=== PATIENT | male | born 1975 | race Caucasian/White ===

== ENCOUNTER → 2023-08-01 | Day surgery (SDC) | payer BC ==
[~2023-08-01] MED LIST: Ringers Lactate 1,000 ML IV ONE; propofoL 200 MG/20 ML VIAL IV ONE
[2023-08-01 11:19] LABS: Potassium 4.8 mEq/L (3.5-5.1)
== END ==
LOC: OR 09:22
PROVIDERS: ATTEND Surgery
PROC: 0DJD8ZZ Inspection of Lower Intestinal Tract, Via Natural or Artificial Opening Endoscopic (ICD-10-PCS; principal; 2023-08-01 13:00)
DX: Z12.11 Encounter for screening for malignant neoplasm of colon (principal); K64.8 Other hemorrhoids
CPT/HCPCS: 80048; 36415; 45378; J2704; J7120; 93005

== ENCOUNTER 2023-08-11 10:05 | Day surgery (SDC) | payer BC ==
--- NOTE | 2023-08-10 18:06 | EKG ---
Test Date: 2023-08-09 Test Time: 11:46:08 Hand Outside Cutter: LEAH MEASUREMENT RESULTS: Intervals: Rate: 84 WI: 148 QRSD: 84 QT: 368 QTc: 434 Marion: P: 40 WI: 148 QRS: 14 T: 18 INTERPRETIVE STATEMENTS: Normal sinus rhythm Possible Left atrial enlargement Borderline ECG No previous ECG available for comparison Electronically Signed On 08-10-23 18:03:36 CDT by Imtiaz Amezcua
[2023-08-11] MEDS ORDERED: CEFAZOLIN SODIUM 2 GM/VIAL ONE (10:58)
[2023-08-11] MEDS ORDERED: Ringers Lactate 1,000 ML IV ONE (10:58)
[2023-08-11] MEDS ORDERED: BUPIVACAINE 0.25% PF 30 ML VIAL ONE (13:01)
[2023-08-11] MEDS ORDERED: MIDAZOLAM HCL 2 MG/2 ML INJ ONE (13:22)
[2023-08-11] MEDS ORDERED: FENTANYL CITR 100 MCG/2 ML ONE (13:22)
[2023-08-11] MEDS ORDERED: propofoL 200 MG/20 ML VIAL IV ONE (13:31)
[2023-08-11] MEDS ORDERED: dexAMETHasone 10 MG/ML VIAL ONE (13:31)
[2023-08-11] MEDS ORDERED: ROCURONIUM 50 MG/5 ML VIAL IV ONE (13:31)
[2023-08-11] MEDS ORDERED: LIDOCAINE 2% MPF 5 ML VIAL ONE (13:34)
[2023-08-11] MEDS ORDERED: KETOROLAC 30 MG/ML INJ ONE (13:34)
[2023-08-11] MEDS ORDERED: ONDANSETRON 4 MG/2 ML VIAL ONE (13:34)
--- NOTE | 2023-08-11 14:34 | P.OP ---
Preoperative diagnosis: Umbilical Hernia Postoperative diagnosis: Umbilical Hernia Primary procedure: Laparoscopic Umbilical Hernia Repair with mesh Anesthesia: GETA + Local Estimated blood loss: <1cc Specimen: Hernia Contents - incarcerated adipose Findings: incarcerated adipose ~ 2cm umbilical hernia Complications: None Implants: 11.4cm Bard Ventralite ST Round Mesh, Sorbafix x 50 Transferred to: Recovery Room Condition: Good
[2023-08-11] MEDS: HYDROMORPHONE HCL 1 MG/ML INJ ONE ×2 (14:45→15:07)
[2023-08-11 15:36] VITALS: BP 153/100; TEMP 97; O2SAT 98
--- NOTE | 2023-08-11 22:46 | OP ---
Date of Procedure: 08/11/2023 Surgeon: Luis Cox MD, Preoperative Diagnosis: Umbilical hernia. Postoperative Diagnosis: Umbilical hernia. Procedure Performed: Laparoscopic umbilical hernia repair with mesh. Anesthesia: General endotracheal plus local with 0.25% Estimated Blood Loss: Less than 1 cc. Specimen: Hernia contents, which were incarcerated adipose tissue. Findings: Incarcerated adipose tissue and preperitoneal fat in an umbilical hernia. Approximately 2 cm hernia defect appreciated. Complications: None. Implants: 11.[address] mesh with Echo Positioning System, round mesh utilized, SorbaFix tacks, x50. Disposition: Patient was transferred to recovery room in good condition. Procedure In Detail: After informed consent was obtained, the patient was brought to the operating room, prepped and draped in the usual sterile fashion. After adequate anesthesia was achieved, an area of the left upper quadrant was anesthetized with 0.25% Marcaine, sharply incised. A 5 mm trocar was placed under direct vision without any evidence of complication. Insufflation was obtained to 15 mmHg. At this time, there was no injury to vital structure upon entry into the abdomen. Additional trocar was placed in the left mid abdomen. This was similarly anesthetized, sharply incised and a 12 mm trocar was placed under direct vision without evidence of complication. The LigaSure device was then used to remove preperitoneal fat and adipose tissue from the incarcerated umbilical hernia, which was approximately in 2 cm in size. After this was taken down using the LigaSure device, I swept back the peritoneal fat and hernia sac and ligated these structures and placing an EndoCatch bag, removed the umbilical trocar and sent off for pathologic examination. I continued to sweep adipose tissue back both proximally and distally from the hernia defect to allow for an appropriate landing zone. I then brought 0 V-Loc suture in an Endo Stitch and I sutured the hernia defect closed imbricating the hernia sac in a running fashion. At this point, I sized the mesh appropriately and final 11.4 cm Bard Ventralight mesh with echo positioning system appeared to be the most appropriate. I then centrally located it. After appropriately anesthetizing the skin in the supraumbilical position, I made a small stab incision and passed Elroy-Tova suture passer to deploy the mesh and it was secured to the anterior abdominal wall using SorbaFix fixation tacks. The balloon deployment system was then removed, found to be intact on the back table. Placed a total of 50 SorbaFix absorbable fixation tacks to the anterior abdominal wall with good apposition of the mesh to the anterior abdominal wall. I then closed the 12 mm trocar site using a Elroy-Tova suture passer with 0 Vicryl in interrupted fashion with good approximation of tissue. The abdomen was then completely desufflated under direct visualization without complication. All skin edges were then copiously irrigated, closed in a 4-0 Monocryl fashion. Dermabond was placed over top. Patient tolerated the procedure well without evidence of complication, transferred to PACU in good condition. All counts were correct at the end of the case. DAMIEN/MASON Voice ID: [id number] Report ID: [id number] JHONATHAN
== END 2023-08-11 16:15 | disposition home or self-care (01) ==
LOC: OR 10:05
PROVIDERS: ATTEND Surgery
PROC: 0WUF4JZ Supplement Abdominal Wall with Synthetic Substitute, Percutaneous Endoscopic Approach (ICD-10-PCS; principal; 2023-08-11 12:15)
DX: K42.9 Umbilical hernia without obstruction or gangrene (principal); F17.210 Nicotine dependence, cigarettes, uncomplicated; M10.9 Gout, unspecified; M19.90 Unspecified osteoarthritis, unspecified site; E66.9 Obesity, unspecified; Z68.30 Body mass index [BMI] 30.0-30.9, adult
CPT/HCPCS: 93005; 88302; 49591; J2704; J2001; J2250; J3010; J1100; J1170; J2405; J7120; C1781